=== PATIENT | male | born 1985 | race Caucasian/White ===

== ENCOUNTER 2017-04-30 17:50 | Emergency (ER) | payer BC ==
[2017-04-30 17:56] VITALS: BP 129/81; BMI 25.0
--- NOTE | 2017-04-30 18:18 | DR.GENAD ---
HPI - PCP Primary Care Physician: symone - Complaint/Symptoms Chief Complaint Doctors Comments: Patient reports that he had been doing well until noon today when he ate lunch s/p swallowing his began to hurt. He denies fever, vomiting or diarrhea. He admits to having lymphoma several years ago but has been doing fine. Chief Complaint:: patient stated he swollowed at lunch and every since then the right side of his throat has been very painfull. - Source History Provided: Patient - Mode of Arrival Mode of Arrival: Ambulatory - Timing Onset of Chief Complaint: 04/30/17 PMH - PMH Past Medical History: No Past Medical History Comment: hx of throat cancer Past Surgical History: Yes Past Surgical History Comment: pac removal - Family History History of Family Medical Conditions: No - Social History Does patient currently use any type of tobacco product: No Have you used tobacco products in the last 12 months: No Type of Tobacco Use: None Does any household member use tobacco: No Alcohol Use: Occasionally Do you use any recreational Drugs:: No Lives With: Alone Lives Where: Home - infectious screening In the last 2 months have you had wt loss of >10#?: NO Have you had fever, night sweats or hemotysis?: No Have you traveled outside the country in the last 6 months?: No Isolation: Standard ROS - Review of Systems Constitutional: Malaise ENTM: No Symptoms Reported Respiratoy: No Symptoms Reported Cardiovascular: No Symptoms Reported Gastrointestinal/Abdominal: No Symptoms Reported Genitourinary: No Symptoms Reported Neurological: No Symptoms Reported Musculoskeletal: No Symptoms Reported Integumentary: No Symptoms Reported Hematologic/Lymphatic: No Symptoms Reported Endocrine: No Symptoms Reported Psychiatric: No Symptoms Reported All Other Systems: Reviewed and Negative PE - Vital Signs Vitals: Temperature 98.9 F Pulse Rate 96 Respiratory Rate 18 Blood Pressure 129/81 O2 Sat by Pulse Oximetry 99 - General Limitations: No Limitations General Appearance: Alert, In No Apparent Distress - Head Head Exam: Normal Inspection, Atraumatic - Eyes Eye exam: Normal Appearance, PERRL, EOMI - ENT ENT Exam: Normal Exam External Ear Exam: Normal External Inspection TM/Canal Exam: Bilateral Normal Nose Exam: Normal Nose Exam Mouth Exam: Normal Inspection Throat Exam: Normal Inspection - Neck Neck Exam: Normal Inspection, Full ROM - Chest Chest Inspection: Normal Inspection - Respiratory Respiratory Exam: Normal Lung Sounds Bilat Respiratory Exam: Bilateral Clear to Auscultation - Cardiovascular Cardiovascular Exam: Regular Rate, Normal Rhythm - Abdominal Exam Abdominal Exam: Normal Inspection, Normal Bowel Sounds Abdominal Tenderness: negative: RUQ, RLQ, LUQ, LLQ, Epigastrium, Suprapubic, Diffuse, Mild, Moderate, Severe, Other - Extremities Extremities Exam: Normal Inspection, Full ROM - Back Back Exam: Normal Inspection, Full ROM - Neurologic Neurological Exam: Alert, Oriented X3, CN II-XII Intact - Psychiatric Psychiatric Exam: Normal Affect - Skin Skin Exam: Warm, Dry, Intact ROR - Labs Reviewed Laboratory Results Reviewed?: Yes (strep negative) Laboratory: Streptococcus Screen Negative (NEGATIVE) 04/30/17 18:24 - XRAY XRAY Interpreted by: Radiologist (Neck: negative) - Diagnosis Discharge Problem: Dysphagia Qualifiers: Dysphagia type: esophageal phase Qualified Code(s): R13.10 - Dysphagia, unspecified - Discharge Plan Condition: Stable - Follow ups/Referrals Follow ups/Referrals: Emeka Ladd [Primary Care Provider] - 3 days - Instructions
--- NOTE | 2017-04-30 20:50 | RAD ---
Two views of the neck soft tissues. Indication: Sore throat with history of lymphoma Findings: The cervical spine demonstrates normal alignment without evidence of prevertebral soft tiss ue swelling or fracture. No radiopaque foreign body identified within the neck soft tissues. Epiglott is is normal in caliber. Hypopharynx and subglottic airway are normal in caliber. Impression: No radiographic abnormality within neck soft tissues. Reported By:
== END 2017-04-30 20:59 | disposition home or self-care (01) ==
LOC: ER 18:04
DX: R13.10 Dysphagia, unspecified (principal)
CPT/HCPCS: 70360; 87070; 87880; 99282